=== PATIENT | female | born 1985 | race Caucasian/White ===

== ENCOUNTER 2017-07-22 17:23 | Emergency (ER) | payer BC, OTHER ==
[2017-07-22 17:42] VITALS: BP 126/58; PULSE 72; RESP 18; TEMP 98.2
--- NOTE | 2017-07-22 18:25 | ED ---
General Adult HPI - General Chief complaint: [place]/Exposure Stated complaint: [facility] - BLOOD EXPOSURE Time Seen by Provider: 07/22/17 18:18 Source: patient Mode of arrival: ambulatory Limitations: no limitations - History of Present Illness Initial comments: 32-year-old female presents for evaluation today after she was exposed to a patient's blood. Patient states that blood was on the palm of her hand. She denies any open wounds or sores to the hand. She is unsure if the patient has any known blood borne illnesses. She states it happened earlier in the day, she did cleanse her hand with a sanitizing wiped and then followed that with hand washing with soap and water. She denies any other physical symptoms or concerns. - Related Data Previous Rx's Medication Instructions Recorded Acetaminophen-Codeine 300-30mg 1 each PO Q4H PRN #15 tablet 01/06/15 [Tylenol #3] Allergies Allergy/AdvReac Type Severity Reaction Status Date / Time No Known Allergies Allergy Verified 07/22/17 17:42 Review of Systems ROS Statement: Those systems with pertinent positive or pertinent negative responses have been documented in the HPI. ROS Other: All systems not noted in ROS Statement are negative. Past Medical History Past Medical History: No Reported History History of Any Multi-Drug Resistant Organisms: None Reported Past Surgical History: Tubal Ligation Past Psychological History: No Psychological Hx Reported Smoking Status: Never smoker Past Alcohol Use History: None Reported Past Drug Use History: None Reported General Exam Limitations: no limitations General appearance: alert, in no apparent distress, other (The patient is well- developed, well-nourished, conscious and coherent, in no acute distress.) Respiratory exam: Present: normal lung sounds bilaterally. Absent: respiratory distress, wheezes, rales, rhonchi, stridor Cardiovascular Exam: Present: regular rate, normal rhythm, normal heart sounds. Absent: systolic murmur, diastolic murmur, rubs, gallop, clicks Extremities exam: Present: normal inspection, full ROM, normal capillary refill , other (No open wounds or sores noted to the palmar aspect of the left hand.). Absent: tenderness, pedal edema, joint swelling, calf tenderness Neurological exam: Present: alert, oriented X3, CN II-XII intact Psychiatric exam: Present: normal affect, normal mood Skin exam: Present: warm, dry, intact, normal color. Absent: rash Course Vital Signs 07/22/17 17:38 Temperature 98.2 F Pulse Rate 72 Respiratory 18 Rate Blood Pressure 126/58 O2 Sat by Pulse 98 Oximetry Medical Decision Making - Medical Decision Making 32-year-old female patient presented for evaluation after she was exposed to a patient's blood. The blood was on the palm of her left hand, physical exam revealed that the palmar aspect of the left hand is intact with no open wounds or sores. Did discuss with patient that the risk of transmission of blood- borne illnesses very low and that testing at this time is not recommended. Patient verbalized understanding and agreed with this. She was given educational materials regarding this and instructed to come in should she change her mind. She is instructed to follow up either here or with [facility] if she has any problems. Disposition Clinical Impression: Exposure to blood Disposition: HOME SELF-CARE Condition: Good Instructions: Body Substance Exposure (ED) Additional Instructions: Review educational materials. Return here or follow-up with [facility] of give any further concerns or questions. Referrals: None,Stated [Primary Care Provider] - 1-2 days Time of Disposition: 18:25
== END 2017-07-22 18:40 | disposition home or self-care (01) ==
LOC: EC 17:23
DX: Z77.21 Contact with and (suspected) exposure to potentially hazardous body fluids (principal)
CPT/HCPCS: 99282

== ENCOUNTER → 2021-02-05 | Outpatient (CLI) | payer BC ==
--- NOTE | 2021-02-06 12:01 | MM ---
Reason for exam: screening (asymptomatic). Baseline mammogram. History: Family history of breast cancer in paternal aunt. Physical Findings: Nurse did not find any significant physical abnormalities on exam. MG Screening Mammo w CAD Bilateral CC and MLO view(s) were taken. The breast tissue is extremely dense which could obscure a lesion on mammography. There is no discrete abnormality. These results were verbally communicated with the patient and result sheet given to the patient on 02/05/21. ASSESSMENT: Benign, BI-RAD 2 RECOMMENDATION: Routine screening mammogram of both breasts in 1 year. (1-5 years)
== END | disposition home or self-care (01) ==
LOC: RADMAMWWP 13:36
PROVIDERS: ATTEND Obstetrics & Gynecology
DX: Z12.31 Encounter for screening mammogram for malignant neoplasm of breast (principal); Z80.3 Family history of malignant neoplasm of breast
CPT/HCPCS: 77067

== ENCOUNTER 2021-05-04 17:29 | Emergency (ER) | payer BC ==
[2021-05-04 17:53] VITALS: BP 124/67; PULSE 60; RESP 18; TEMP 97.9
--- NOTE | 2021-05-04 19:44 | ED ---
Eye Problem HPI - General Chief complaint: Eye Problems Stated complaint: lt eye vision issues Time Seen by Provider: 05/04/21 18:49 Source: patient Mode of arrival: ambulatory Limitations: no limitations - History of Present Illness Initial comments: 36-year-old male presents to emergency Department with a chief complaint of floaters in her left eye. Patient reports the sores have been ongoing for past several weeks, intermittent and usually last for approximately 30 30 minutes. She states most of the time they're located in the left visual field. She denies any associated headaches or pain with extraocular movements. She denies any trauma to the eye. She does wear glasses or contacts but she denies any tearing or redness or itching in the eye. She denies any pain in her eyes or changes in her visual acuity. - Related Data Home Medications Medication Instructions Recorded Confirmed No Known Home Medications 05/04/21 05/04/21 Allergies Allergy/AdvReac Type Severity Reaction Status Date / Time No Known Allergies Allergy Verified 05/04/21 19:22 Review of Systems ROS Statement: Those systems with pertinent positive or pertinent negative responses have been documented in the HPI. ROS Other: All systems not noted in ROS Statement are negative. Past Medical History Past Medical History: No Reported History History of Any Multi-Drug Resistant Organisms: None Reported Past Surgical History: Tubal Ligation Past Psychological History: No Psychological Hx Reported Smoking Status: Never smoker Past Alcohol Use History: None Reported Past Drug Use History: None Reported General Exam Limitations: no limitations General appearance: alert, in no apparent distress Head exam: Present: atraumatic, normocephalic, normal inspection Eye exam: Present: normal appearance, PERRL, EOMI, other (Limited funduscopic examination reveals no acute findings.). Absent: scleral icterus, conjunctival injection, nystagmus, periorbital swelling, periorbital tenderness Pupils: Present: normal accommodation ENT exam: Present: normal exam, normal oropharynx, mucous membranes moist Neck exam: Present: normal inspection, full ROM. Absent: tenderness, lymphadenopathy Respiratory exam: Present: normal lung sounds bilaterally. Absent: respiratory distress, wheezes, rales, rhonchi, stridor, accessory muscle use Cardiovascular Exam: Present: regular rate, normal rhythm, normal heart sounds Extremities exam: Present: normal inspection, full ROM, normal capillary refill. Absent: tenderness, pedal edema, joint swelling Back exam: Present: normal inspection, full ROM. Absent: tenderness, CVA tenderness (R), CVA tenderness (L) Neurological exam: Present: alert, oriented X3 Psychiatric exam: Present: normal affect, normal mood Skin exam: Present: warm, dry, intact, normal color Course Vital Signs 05/04/21 17:50 Temperature 97.9 F Pulse Rate 60 Respiratory 18 Rate Blood Pressure 124/67 O2 Sat by Pulse 100 Oximetry Medical Decision Making - Medical Decision Making 36-year-old female presents to emergency department with a chief complaint of floaters in her left eye. On physical examination, no pain with extraocular movements. Visual acuity is 20/13 in the left and both eyes. 20/15 in the right eye. Eye pressures are 19 in the right and 21 to the left. I discussed the case with Dr. Bush who recommends outpatient follow-up with ophthalmology. Patient will be given contact information. Strict return parameters were thoroughly discussed the patient is a visiting agreeable. Disposition Clinical Impression: Floaters in visual field Disposition: HOME SELF-CARE Condition: Stable Instructions (If sedation given, give patient instructions): Visual Floaters (ED) Additional Instructions: Follow-up with ophthalmology. Return to emergency department if symptoms worsen . Is patient prescribed a controlled substance at d/c from ED?: No Referrals: Domo Macias MD [Primary Care Provider] - 1-2 days Willard Emery MD [STAFF PHYSICIAN] - 1-2 days Time of Disposition: 20:05
== END 2021-05-04 20:14 | disposition home or self-care (01) ==
LOC: EC 17:29
DX: H43.392 Other vitreous opacities, left eye (principal)
CPT/HCPCS: 99283

== ENCOUNTER → 2022-04-01 | Outpatient (CLI) | payer BC ==
--- NOTE | 2022-04-02 15:00 | MM ---
Reason for Exam: Screening (asymptomatic). Last mammogram was performed 1 year(s) and 1 month(s) ago. Patient History: Menarche at age 11. First Full-Term at age 20. Paternal aunt had breast cancer, age 55. Last menstrual period: 03/25/2022 Risk Values: [place] 5 year model risk: 0.3%. NCI Lifetime model risk: 8.2%. Film Views: Bilateral CC views were taken. Bilateral MLO views were taken. Prior Study Comparison: 02/05/2021 Bilateral Screening Mammogram, [facility]. Tissue Density: The breast tissue is extremely dense which could obscure a lesion on mammography. Findings: Analyzed By CAD. There is no suspicious group of microcalcifications or new distortion in either breast. Overall Assessment: Negative, BI-RAD 1 Management: Screening Mammogram of both breasts at age 41. Some advise annual bilateral breast ultrasound surveillance in patients with background extremely dense tissue. Electronically signed and approved by: Vladimir Robles M.D.
== END | disposition home or self-care (01) ==
LOC: RADMAMWWP 18:17
PROVIDERS: ATTEND Obstetrics & Gynecology
DX: Z08 Encounter for follow-up examination after completed treatment for malignant neoplasm (principal); Z80.3 Family history of malignant neoplasm of breast
CPT/HCPCS: 77067

== ENCOUNTER → 2022-06-16 | Outpatient (CLI) | payer BC ==
[2022-06-16 22:45] LABS: HCT 35.2 % (37.2-46.3); HGB 11.1 g/dL (12.0-15.0); MCH 26.8 pg (27.0-32.0); MCHC 31.5 g/dL (32.0-37.0); Mean Platelet Volume 10.1 fL (9.5-12.2); NRBC Per 100 WBC 0 /100 WBCS (0.0-0.0); Platelet Count 253 X 10*3/uL (140-440); RBC 4.14 X 10*6/uL (4.10-5.20); RDW 12.8 % (11.5-14.5); WBC 5.48 X 10*3/uL (4.50-10.00)
[2022-06-16 23:10] LABS: INR 0.97 (0.90-1.11); Prothrombin Time 10.7 sec (9.9-11.9)
[2022-06-16 23:11] LABS: C Reactive Protein <0.30 mg/dL (0.00-0.80); Rheumatoid Factor, Qnt <10 IU/mL (0-15)
[2022-06-16 23:19] LABS: Erythrocyte Sedimentation Rate 3 mm/Hr (0-20)
[2022-06-17 09:59] LABS: Angiotensin-1 Converting Enz. 49 U/L (8-52)
[2022-06-17 12:54] LABS: Lyme IgG/IgM 0.07 Index
== END | disposition home or self-care (01) ==
LOC: LABWHC1 15:38
PROVIDERS: ATTEND Ophthalmology
DX: I77.6 Arteritis, unspecified (principal)
CPT/HCPCS: 36415; 82164; 85027; 85549; 85610; 85652; 86038; 86140; 86431; 86618

== ENCOUNTER → 2024-04-20 | Outpatient (CLI) | payer BC ==
--- NOTE | 2024-04-20 16:00 | CT ---
EXAMINATION TYPE: CT brain wo con CT DLP: 1165.8 mGycm, Automated exposure control for dose reduction was used. DATE OF EXAM: 04/20/2024 2:28 PM COMPARISON: None.. CLINICAL INDICATION:Female, 39 years old with history of R41.0 DISORIENTATION, DISORIENTATION, headac he x 4 days. no history. TECHNIQUE: Brain: Axial CT images of the brain were obtained with coronal and sagittal reformats created and rev iewed. Contrast used: None. Oral contrast used: None. FINDINGS: Extra-axial spaces: No abnormal extra-axial fluid collections. Basilar cisterns are patent. Ventricular system: Within normal limits. Cerebral parenchyma: No increased attenuation to suggest acute intraparenchymal hemorrhage. The gra y-white matter interface appears maintained. No significant atrophy. White matter unremarkable by C T. Cerebellum: No acute abnormality. Mass effect: No evidence of mass effect or midline shift. Intracranial vasculature: Unremarkable Soft tissues: No acute or concerning abnormality. Visualized orbits: Orbital contents appear grossly intact. Calvarium/osseous structures: No evidence of calvarial fracture. Paranasal sinuses and mastoid air cells: Clear. MRI is more sensitive for detecting acute processes such as infarct, and may be considered if clinica lly warranted. IMPRESSION: No acute intracranial CT abnormality.
== END | disposition home or self-care (01) ==
LOC: RADCTMAIN 14:10
PROVIDERS: ATTEND Family Medicine
DX: R41.0 Disorientation, unspecified (principal); R51.9 Headache, unspecified
CPT/HCPCS: 70450

== ENCOUNTER 2024-10-07 13:43 | Emergency (ER) | payer BC ==
[2024-10-07 13:50] VITALS: BP 121/65; PULSE 66; TEMP 98.5
--- NOTE | 2024-10-07 14:20 | ED ---
General Adult HPI - General Chief complaint: Recheck/Abnormal Lab/Rx Stated complaint: Skin Bruising Time Seen by Provider: 10/07/24 14:00 Source: patient, RN notes reviewed, old records reviewed Mode of arrival: ambulatory Limitations: no limitations - History of Present Illness Initial comments: Is a 39-year-old female who states she has some issues in the past where she just had random bruising. Patient states last night she felt a little pain in her right jaw and she woke up this morning and found some bruising under her right eye. Patient states she has been without any trauma. Patient denies any pain there currently. Patient states she has seen a service tester in the past and they have been unable to find anything. - Related Data Home Medications Medication Instructions Recorded Confirmed No Known Home Medications 05/04/21 05/04/21 Allergies Allergy/AdvReac Type Severity Reaction Status Date / Time No Known Allergies Allergy Verified 10/07/24 13:46 Review of Systems ROS Statement: Those systems with pertinent positive or pertinent negative responses have been documented in the HPI. ROS Other: All systems not noted in ROS Statement are negative. Past Medical History Past Medical History: No Reported History Additional Past Medical History / Comment(s): Anemia. Torn retina History of Any Multi-Drug Resistant Organisms: None Reported Past Surgical History: No Surgical Hx Reported, Tubal Ligation Past Psychological History: No Psychological Hx Reported Smoking Status: Never smoker Past Alcohol Use History: None Reported Past Drug Use History: None Reported General Exam - General Exam Comments Initial Comments: GENERAL: Patient is well-developed and well-nourished. Patient is nontoxic and well- hydrated and is in no acute distress. ENT: Neck is soft and supple. No significant lymphadenopathy is noted. Oropharynx is clear. Moist mucous membranes. Neck has full range of motion without olamide citing any pain. EYES: The sclera were anicteric and conjunctiva were pink and moist. Extraocular movements were intact and pupils were equal round and reactive to light. Eyelids were unremarkable. Patient has some very mild infraorbital bruising SKIN: Infraorbital bruising mild NEUROLOGIC: Patient is alert and oriented x3. Cranial nerves II through XII are grossly intact. Motor and sensory are also intact. Normal speech, volume and content. Symmetrical smile. MUSCULOSKELETAL: Normal extremities with adequate strength and full range of motion. No lower extremity swelling or edema. No calf tenderness. LYMPHATICS: No significant lymphadenopathy is noted PSYCHIATRIC: Normal psychiatric evaluation. Limitations: no limitations Course Vital Signs 10/07/24 13:46 Temperature 98.5 F Pulse Rate 66 Respiratory 18 Rate Blood Pressure 121/65 O2 Sat by Pulse 97 Oximetry Medical Decision Making - Medical Decision Making Was pt. sent in by a medical professional or institution ([facility]IC[facility] Olea, VARNISH FILTERER, urgent care, hospital, or snf...) When possible be specific @ -No Did you speak to anyone other than the patient for history (EMS, parent, family, police, friend...)? What history was obtained from this source @ -No Did you review nursing and triage notes (agree or disagree)? Why? @ -I reviewed and agree with nursing and triage notes Were old charts reviewed (outside hosp., previous admission, EMS record, old EKG, old radiological studies, urgent care reports/EKG's, snf records)? Report findings @ -No old charts were reviewed Differential Diagnosis? @ -Thrombocytopenia, coagulopathy, bruising, von Willebrand's disease, this is not an all-inclusive list EKG interpreted by me (3pts min.). @ -As above X-rays interpreted by me (1pt min.). @ -None done CT interpreted by me (1pt min.). @ -None done U/S interpreted by me (1pt. min.). @ -None done What testing was considered but not performed or refused? (CT, X-rays, U/S, labs)? Why? @ -None What meds were considered but not given or refused? Why? @ -None Did you discuss the management of the patient with other professionals (professionals i.e. MAURICIO Olea, VARNISH FILTERER, lab, RT, psych nurse, psychosocial rehabilitation counselor, board design engineer, teacher, chief program officer, piano case maker)? Give summary @ -No Was smoking cessation discussed for >3mins.? @ -No Was critical care preformed (if so, how long)? @ -No Were there social determinants of health that impacted care today? How? (Homelessness, low income, unemployed, alcoholism, drug addiction, transportation, low edu. Level, literacy, decrease access to med. care, group home, rehab)? @ -No Was there de-escalation of care discussed even if they declined (Discuss DNR or withdrawal of care, Hospice)? DNR status @ -No What co-morbidities impacted this encounter? (DM, HTN, Smoking, COPD, CAD, Cancer, CVA, ARF, Chemo, Hep., AIDS, mental health diagnosis, sleep apnea, morbid obesity)? @ -None Was patient admitted / discharged? Hospital course, mention meds given and route, prescriptions, significant lab abnormalities, going to OR and other pertinent info. @ -Patient's blood work came back within normal limits. Patient's von Willebrand test will be back at a later date. Patient has no other bruising than the infraorbital bruising Undiagnosed new problem with uncertain prognosis? @ -No Drug Therapy requiring intensive monitoring for toxicity (Heparin, Nitro, Insulin, Cardizem)? @ -No Were any procedures done? @ -No Diagnosis/symptom? @ -Infraorbital bruising Acute, or Chronic, or Acute on Chronic? @ -Acute Uncomplicated (without systemic symptoms) or Complicated (systemic symptoms)? @ -Uncomplicated Side effects of treatment? @ -No Exacerbation, Progression, or Severe Exacerbation? @ -No Poses a threat to life or bodily function? How? (Chest pain, USA, SC, pneumonia, PE, COPD, DKA, ARF, appy, cholecystitis, CVA, Diverticulitis, Homicidal, S uicidal, threat to staff... and all critical care pts) @ -No - Lab Data Result diagrams: 10/07/24 14:27 10/07/24 14:27 Lab Results 10/07/24 10/07/24 10/07/24 Range/Units 14:27 14:27 14:27 WBC 8.8 (3.8-10.6) k/uL RBC 4.68 (3.80-5.40) m/uL Hgb 14.1 (11.4-16.0) gm/dL Hct 41.8 (34.0-46.0) % MCV 89.4 (80.0-100.0) fL MCH 30.2 (25.0-35.0) pg MCHC 33.8 (31.0-37.0) g/dL RDW 12.7 (11.5-15.5) % Plt Count 247 (150-450) k/uL MPV 7.4 Neutrophils % 91 % Lymphocytes % 7 % Monocytes % 2 % Eosinophils % 0 % Basophils % 0 % Neutrophils # 8.0 H (1.3-7.7) k/uL Lymphocytes # 0.6 L (1.0-4.8) k/uL Monocytes # 0.2 (0-1.0) k/uL Eosinophils # 0.0 (0-0.7) k/uL Basophils # 0.0 (0-0.2) k/uL PT 10.0 (10.0-12.5) sec INR 0.9 (<1.2) APTT 28.3 (22.0-30.0) sec Sodium 139 (137-145) mmol/L Potassium 3.7 (3.5-5.1) mmol/L Chloride 104 (98-107) mmol/L Carbon Dioxide 25 (22-30) mmol/L Anion Gap 10 mmol/L BUN 11 (7-17) mg/dL Creatinine 0.64 (0.52-1.04) mg/dL Est GFR (CKD-EPI)AfAm >90 (>60 ml/min/1.73 sqM) Est GFR (CKD-EPI)NonAf >90 (>60 ml/min/1.73 sqM) Glucose 117 H (74-99) mg/dL Calcium 9.4 (8.4-10.2) mg/dL Total Bilirubin 0.5 (0.2-1.3) mg/dL AST 26 (14-36) U/L ALT 21 (4-34) U/L Alkaline Phosphatase 72 (38-126) U/L Total Protein 7.7 (6.3-8.2) g/dL Albumin 4.6 (3.5-5.0) g/dL Disposition Clinical Impression: Ecchymosis of eye Disposition: HOME SELF-CARE Condition: Good Is patient prescribed a controlled substance at d/c from ED?: No Referrals: Domo Macias MD [Primary Care Provider] - 1-2 days Time of Disposition: 15:23
[2024-10-07 14:33] LABS: Basophils % (A) 0 %; Eosinophils % (A) 0 %; HCT 41.8 % (34.0-46.0); HGB 14.1 gm/dL (11.4-16.0); Lymphocytes # (A) 0.6 k/uL (1.0-4.8); Lymphocytes % (A) 7 %; MCH 30.2 pg (25.0-35.0); MCHC 33.8 g/dL (31.0-37.0); MCV 89.4 fL (80.0-100.0); Mean Platelet Volume 7.4; Monocytes # (A) 0.2 k/uL (0-1.0); Monocytes % (A) 2 %; Neutrophils % (A) 91 %; Platelet Count 247 k/uL (150-450); RBC 4.68 m/uL (3.80-5.40); RDW 12.7 % (11.5-15.5); WBC 8.8 k/uL (3.8-10.6)
[2024-10-07 14:49] LABS: ALT 21 U/L (4-34); AST 26 U/L (14-36); African American GFR (CKD) >90 (>60 ml/min/1.73 sqM); Albumin 4.6 g/dL (3.5-5.0); Alkaline Phosphatase 72 U/L (38-126); Anion Gap 10 mmol/L; Blood Urea Nitrogen 11 mg/dL (7-17); Calcium 9.4 mg/dL (8.4-10.2); Carbon Dioxide 25 mmol/L (22-30); Chloride 104 mmol/L (98-107); Glucose 117 mg/dL (74-99); Non-African American GFR(CKD) >90 (>60 ml/min/1.73 sqM); Potassium 3.7 mmol/L (3.5-5.1); Sodium 139 mmol/L (137-145); Total Bilirubin 0.5 mg/dL (0.2-1.3); Total Protein 7.7 g/dL (6.3-8.2)
[2024-10-07 14:54] LABS: INR 0.9 (<1.2); Partial Thromboplastin Time 28.3 sec (22.0-30.0)
[2024-10-07 15:49] VITALS: RESP 16
== END 2024-10-07 15:49 | disposition home or self-care (01) ==
LOC: EC 13:43
DX: S05.11XA Contusion of eyeball and orbital tissues, right eye, initial encounter (principal); X58.XXXA Exposure to other specified factors, initial encounter
CPT/HCPCS: 36415; 80053; 85025; 85246; 85610; 85730; 99283

== ENCOUNTER → 2024-11-28 | Outpatient (CLI) | payer BC ==
--- NOTE | 2024-11-30 10:11 | MR ---
EXAMINATION TYPE: MR brain wo con DATE OF EXAM: 11/28/2024 4:22 PM COMPARISON: 04/20/2024. CLINICAL INDICATION: Female, 39 years old with history of G35 Multiple sclerosis; PHH, Vision issues- Left eye blurred vision seeing halos, Numbness in hands/feet, Evaluate for MS, Hx Lt retinal detachm ent repair, TECHNIQUE: Multi planar, multi sequence imaging was performed through the brain including: T1, T2, In version recovery, Diffusion weighted imaging, and gradient echo imaging. No gadolinium was given. FINDINGS: The villegas-white junctions, ventricular system, basal cisterns appear unremarkable. Scattered foci of high T2 signal intensity are seen within the periventricular white matter. These are not classical p erpendicular to the lateral ventricles. These are predominantly in the frontal lobes bilaterally Midl ine structures show no abnormality. Diffusion-weighted imaging shows no evidence of restricted diffus ion. The susceptibility weighted images do not reveal any evidence for micro-hemorrhage. The bone marrow signal is within normal limits. Paranasal sinuses and mastoid air cells: No significant paranasal sinus disease. Visualized orbits: Orbital contents are intact. IMPRESSION: 1. No evidence of intracranial mass or acute/subacute infarct. 2. No evidence for active demyelination, scattered nonspecific white matter changes which are not cla ssic for multiple sclerosis but could still be demyelination. Alternatively these could represent seq uela of migraines. [facility], , 11/30/2024 10:09 AM
== END | disposition home or self-care (01) ==
LOC: RADMRIMAIN 15:45
PROVIDERS: ATTEND Ophthalmology
DX: G35 Multiple sclerosis (principal); R90.82 White matter disease, unspecified; Z87.59 Personal history of other complications of pregnancy, childbirth and the puerperium
CPT/HCPCS: 70551